=== PATIENT | female | born 1965 | race Caucasian/White ===

== ENCOUNTER 2021-01-08 22:14 | Emergency (ER) | payer SELFPAY ==
[2021-01-08 22:18] VITALS: BP 189/104; PULSE 74; RESP 18; TEMP 36.4; O2SAT 97
--- NOTE | 2021-01-08 22:30 | RT.EKG_ITS ---
APPROVED REPORT Exam: Resting ECG Reason for Exam: hypertension Patient Location: E HR:65 bpm ECG Measurements Heart Rate 65 AXIS VA 198 P 34 QRSd 77 QRS 15 QT 415 T 51 QTc 431 Conclusion Sinus rhythm...normal P axis, V-rate 60- 99 Physician: no stemi
--- NOTE | 2021-01-08 22:33 | ED.GENADUL_ITS ---
Discharge Plan Disposition Patient Disposition: HOME Condition: Good Discharge Details Clinical Impression: Hypertension Primary Care Provider: None,None ED Provider: Haider Lundy Home Meds and New Rx's Prescriptions: New lisinopril 10 mg tablet 10 mg PO DAILY Qty: 30 RF: 1 Discharge Instructions Instructions: Hypertension (ED) Additional Instructions: At this time your work-up is very reassuring. Your heart markers kidney function and other assessments are normal. Your blood pressure does need to be controlled. To start this we will start you on lisinopril 10 mg daily. Please take this as directed. You can monitor your blood pressure closely over the next 2 to 3 weeks to note any change or improvement. We will help you set up a new follow-up/establishment of the family doctor for you. They will contact you for appointment availability. Please continue to avoid foods high in salt. Do your best to walk and exercise daily. If you notice any worsening of your symptoms, or any new symptoms such as vomiting, diarrhea, fever, chills, shortness of breath, chest pain, numbness, weakness, or fainting , please return immediately to the emergency department for reevaluation. Please follow up with your primary care provider as soon as possible for reassessment and reevaluation. As always, it was a pleasure participating in your medical care today. Medical Decision Making This is a pleasant 55-year-old female with no past medical history who does not take any medications and has not seen a doctor for quite a few years, presents today for evaluation of hypertension. 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 She started checking her blood pressure for the last 3 days and noticed it to be hypertensive. She came in this evening for further evaluation. She denies any chest pain, syncope, tearing or ripping sensation in the chest, chest heaviness, shortness of breath, arm, neck, or shoulder pain. She denies any bandlike sensation around the chest. She does admit to mild fatigue. No personal history of cardiac disease however she does have a family history of cardiac disease amongst her 2 brothers that are slightly older than her, both of which have had heart attacks and CABGs. Patient denies any history of tobacco abuse. Physical exam notably unremarkable. Patient is not in a hypertensive crisis at this time. She does need outpatient antihypertensive management, unfortunately she does not have a PCP at this time. We will put a case management referral for a new PCP. We will start the patient on lisinopril to help facilitate expedition of hypertension management. Since the patient does not come to the hospital ever, and has not had any work-up in the last few years, we will get some basic labs and EKG for screening 11:45 PM Patient's laboratory work-up and EKG and troponin have all returned unremarkable. Notably reassuring. Patient feels well. Repeat assessment of her blood pressure without intervention shows a blood pressure of 146 systolic over 80 diastolic. This is very reassuring. She would still benefit from antihypertensive management.. We will start her on lisinopril 10 mg daily. We will set up for PCP follow-up and establishment of new PCP. Discussed red flags which to return. I have extensively reviewed the treatment plan and discharge instructions with the patient and their family. I have addressed all patient concerns at this time. The patient and family was made aware of what symptoms to monitor for that would warrant a return to the emergency department. Discussed the plan with the patient and family, they demonstrate verbal understanding and agreement with our assessment and plan at this time. The documentation in this chart was dictated using Tego dictation software. Please excuse any dictation errors. HPI General Date/Time Provider Initiated Documentation: 01/08/21 22:17 . HPI Narrative: This is a pleasant 55-year-old female with no past medical history who does not take any medications and has not seen a doctor for quite a few years, presents today for evaluation of hypertension. 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 She started checking her blood pressure for the last 3 days and noticed it to be hypertensive. She came in this evening for further evaluation. She denies any chest pain, syncope, tearing or ripping sensation in the chest, chest heaviness, shortness of breath, arm, neck, or shoulder pain. She denies any bandlike sensation around the chest. She does admit to mild fatigue. No personal history of cardiac disease however she does have a family history of cardiac disease amongst her 2 brothers that are slightly older than her, both of which have had heart attacks and CABGs. Patient denies any history of tobacco abuse. Related Data Home Medications Medication Instructions Recorded Confirmed lisinopril 10 mg PO DAILY #30 tab 01/08/21 Previous Rx's Medication Instructions Recorded lisinopril 10 mg PO DAILY #30 tab 01/08/21 Allergies Allergy/AdvReac Type Severity Reaction Status Date / Time No Known Allergies Allergy Unverified 01/08/21 22:22 General Stated Complaint: GenMedical PILO: 3 Review of Systems All systems reviewed & are unremarkable except as noted in HPI and below PFSH Social History Smoking/Tobacco Use Status: Never Smoking risk assessment performed?: Yes Alcohol Intake: never Drug use: Never Substance use type: does not use Do you feel safe at home: Yes Do you feel safe in your relationship?: Yes Exam Narrative Exam Narrative: 1.Const: Well-nourished, Well-developed, appearing stated age 2.Eyes: PERRL, no conjunctival injection, and symmetrical lids. 3.ENT: Atraumatic external nose and ears. Moist MM. Neck: Symmetric, trachea midline, No thyromegaly. 4.CVS: +S1/S2, No murmurs or gallops. Peripheral pulses 2+ and equal in all extremities. Brisk capillary refill in all extremities. 5.RESP: Unlabored respiratory effort. Clear to auscultation bilaterally. No wheezes rales or rhonchi 6.GI: Soft, Nontender/Nondistended, No hepatosplenomegaly. No guarding or rebound. 7.MSK: Normocephalic/Atraumatic, Extremities w/o deformity or ttp No cyanosis or clubbing, Normal movement of all extremities 8.Skin: Warm, Dry. No rashes or lesions. 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 Sensation grossly intact, no focal neurologic deficits. 10.Psych: (AAO) x3. Appropriate mood and affect Course Vital Signs Vital signs: Vital Signs Temperature 36.4 C L 01/08/21 22:18 Pulse 74 01/08/21 22:18 Respiratory Rate 18 01/08/21 22:18 Blood Pressure 189/104 H 01/08/21 22:18 Pulse Oximetry 97 01/08/21 22:18 Temperature 36.4 C L 01/08/21 22:18 Pulse 74 01/08/21 22:18 Respiratory Rate 18 01/08/21 22:18 Blood Pressure 189/104 H 01/08/21 22:18 Pulse Oximetry 97 01/08/21 22:18 Pain Level 1 01/08/21 22:18
[2021-01-08 23:04] LABS: Abs Immature Grans 0.02 10^3/uL (0.0-0.06); Absolute Basophil Count 0.03 10^3/uL (0.0-0.2); Absolute Eosinophil Count 0.28 10^3/uL (0.0-0.7); Absolute Lymphocyte Count 2.25 10^3/uL (1.2-3.4); Absolute Monocyte Count 0.79 10^3/uL (0.1-0.8); Absolute Neutrophil Count 4.19 10^3/uL (1.2-6.7); Basophils % 0.4; Eosinophils % 3.7; HCT 41.7 % (36.0-46.0); HGB 13.8 g/dL (11.2-15.7); Immature Grans % 0.3; Lymphocytes % 29.8; MCH 28.5 pg (27.0-33.0); MCHC 33.1 % (32.0-36.0); Monocytes % 10.4; Neutrophils % 55.4; Nucleated RBC 0 %; Platelet Count 249 10^3/uL (130-400); RBC 4.85 10^6/uL (3.93-5.22); RDW-SD 40.6 fL; WBC 7.56 10^3/uL (4.4-10.8)
[2021-01-08 23:22] LABS: ALT 33 U/L (14-59); AST 23 U/L (15-37); Albumin 3.7 g/dL (3.4-5.0); Alkaline Phosphatase 93 U/L (46-116); Anion Gap 7.9 mmol/L (3-11); BUN 11 mg/dL (7-18); Bilirubin, Total 0.5 mg/dL (0.2-1.0); CO2 28.1 mmol/L (21.0-32.0); CREATININE 0.8 mg/dL (0.55-1.02); Calcium 9.2 mg/dL (8.5-10.1); Chloride 105 mmol/L (98-107); Glucose 135 mg/dL (74-106); Potassium 3.7 mmol/L (3.5-5.1); Sodium 141 mmol/L (136-145); Total Protein 7.4 g/dL (6.4-8.2)
[2021-01-08 23:23] LABS: Troponin I < 0.05 ng/mL (<0.06)
--- NOTE | 2021-01-08 23:39 | NUR.NOTE ---
Nursing Note: REFERAL TO CM TO ESTABLISH A PCP FOR UNCONNTROLLED HYPERTENSION 01/08/21
[2021-01-08 23:43] VITALS: BP 146/86; PULSE 70; RESP 16; O2SAT 94
[2021-01-08] MEDS: Lisinopril 10 MG TAB PO (23:45)
== END 2021-01-08 23:55 | disposition home or self-care (01) ==
PROVIDERS: Emergency Provider Student in an Organized Health Care Education/Training Program
DX: I10 Essential (primary) hypertension (principal)
CPT/HCPCS: 36415; 80053; 93005; 99284; 84484; 85025; 93010